=== PATIENT | female | born 2000 | race Caucasian/White ===

== ENCOUNTER 2024-06-21 23:32 | Emergency (ER) | payer BC ==
[2024-06-22 01:38] LABS: #Basophils 0.05 10x3/uL (0.0-0.2); #Eosinophils 0.01 10x3/uL (0.0-0.5); #Monocytes 0.87 10x3/uL (0.0-1.1); #Neutrophils 4.93 10x3/uL (1.5-8.4); %Basophils 0.5 % (0.0-2.0); %Eosinophils 0.1 % (0.0-6.0); %Lymphocytes 38.1 % (18.0-47.0); %Monocytes 9.1 % (0.0-10.0); %Neutrophils 51.9 % (40.0-75.0); Hematocrit 34.9 % (34.9-44.5); Hemoglobin 12.5 g/dL (12.0-15.5); Mean Corpuscular HGB CONC 35.8 g/dL (32.0-36.0); Mean Corpuscular Hemoglobin 32.4 pg (27.0-33.0); Mean Corpuscular Volume 90.4 fL (81.6-98.3); Mean Platelet Volume 10.9 fL (7.4-10.4); Platelet Count 211 10x3/uL (150-450); RBC Distribution Width 11.9 % (11.5-14.5); Red Blood Cell (RBC) Count 3.86 10x6/uL (3.90-5.03); White Blood Cell (WBC) Count 9.5 10x3/uL (3.5-10.5)
[2024-06-22 01:57] LABS: ALT (SGPT) 20 U/L (8-55); AST (SGOT) 22 U/L (5-34); Albumin 4.4 g/dL (3.5-5.0); Alkaline Phosphatase 68 U/L (40-110); Anion Gap 13 mmol/L (10-20); BUN (Urea Nitrogen) 13 mg/dL (7.0-18.7); Bilirubin, Total 0.4 mg/dL (0.2-1.2); Calc. Creatinine Clearance 0 mL/min (70-130); Calcium 9.7 mg/dL (7.8-10.44); Carbon Dioxide 21 mmol/L (22-29); Chloride 110 mmol/L (98-107); Estimated GFR 111; Globulin 2.9 g/dL (2.4-3.5); Glucose 86 mg/dL (70-105); Lipase 21 U/L (8-78); Potassium 4.2 mmol/L (3.5-5.1); Protein, Total 7.3 g/dL (6.0-8.3); Sodium 140 mmol/L (136-145)
[2024-06-22 02:03] LABS: Bilirubin Neg (Negative); Blood, Urine Negative (Negative); Clarity Clear (Clear); Glucose, Urine (Dipstick) Normal (Negative); Ketone, Urine Negative (Negative); Leukocyte 500 (Negative); Nitrite Negative (Negative); Protein, Urine (Dipstick) Negative (Neg-Trace); Specific Gravity, Urine 1.015 (1.005-1.030); Urobilinogen Normal mg/dL (Less than 2)
[2024-06-22 02:05] LABS: Pregnancy Test - Urine (BHCG) Negative (Negative); Pregu Control Background? CLEAR/WHITE (CLR/WHITE); Pregu Control Bar Appear? YES (CONTROL BAR); Specific Gravity 1.015 (1.002-1.036)
[2024-06-22] MEDS ORDERED: Milk Of Magnesia 30 ML UDCUP ONE (02:08)
[2024-06-22] MEDS ORDERED: Lidocaine Viscous Sol 2% 15 ml UD Cup ONE (02:08)
[2024-06-22 02:10] LABS: Bacteria/HPF 1+ HPF (None Seen); CAUTI Indications for Culture Pelvic or flank pain; RBC/HPF 0-3 HPF (0-3)
[2024-06-22 02:11] LABS: Urine Culture Reflex No No
== END 2024-06-22 03:19 | disposition home or self-care (01) ==
LOC: CSHERS 23:32
DX: K27.9 Peptic ulcer, site unspecified, unspecified as acute or chronic, without hemorrhage or perforation (principal); F17.290 Nicotine dependence, other tobacco product, uncomplicated
CPT/HCPCS: 36415; 80053; 81001; 81025; 83690; 85025; 99284